=== PATIENT | female | born 2000 | race Hispanic/Latino ===

== ENCOUNTER 2020-09-10 17:54 | Emergency (ER) | payer OTHER, SELFPAY ==
[2020-09-10 18:02] VITALS: BP 110/57; PULSE 89; RESP 18; TEMP 36.5; O2SAT 100
--- NOTE | 2020-09-10 18:23 | ED_ITS ---
HPI - Allergic Reaction General Chief complaint: Allergic Reaction Stated complaint: Allergic reaction Time Seen by Provider: 09/10/20 17:58 Source: patient and EMS Mode of arrival: EMS Limitations: no limitations History of Present Illness HPI narrative: 19-year-old nonsmoker presents by EMS for evaluation of an allergic reaction. Patient had been eating some type of energy bar candy bar that had peanuts and soon thereafter developed an itchy, red rash and the sensation that her throat was closing. She called EMS and was very appropriately treated and brought here. She was given Benadryl as well as an injection of epinephrine and had a near complete resolution of her symptoms prior to her arrival. She denies any longstanding allergic history. She denies any facial, tongue, lip or throat swelling. She denies chest pain or shortness of breath. She denies nausea, vomiting or diarrhea. She denies any rash. MD complaint: allergic reaction Onset (ago): hour(s) Exposure: food Treatment prior to arrival: benadryl and epinephrine Previous Allergic Reaction History: none Related Data Previous Rx's Medication Instructions Recorded epinephrine [EpiPen 2-Cj] 0.3 mg IM Q5-15M PRN #2 each 09/10/20 prednisone 20 mg PO DAILY #5 tab 09/10/20 Allergies Allergy/AdvReac Type Severity Reaction Status Date / Time nut - unspecified Allergy Severe Anaphylaxis Verified 09/10/20 19:13 Review of Systems Constitutional Constitutional: Denies chills, Denies fatigue, Denies fever(s), Denies frequent falls, Denies lethargy and Denies weakness Eyes Eyes: Denies change in vision, Denies eye discharge, Denies irritation and Denies loss of vision ENT Ears, Nose, Mouth, and Throat: Denies change in voice, Denies dizziness, Denies neck pain, Denies sore throat and Reports throat swelling Cardiovascular Cardiovascular: Denies chest pain, Denies irregular heart rhythm, Denies lightheadedness, Denies palpitations, Denies dyspnea, Denies dyspnea on exertion and Denies orthopnea Respiratory Respiratory: Denies cough, Denies dyspnea, Denies dyspnea on exertion and Denies wheezing Gastrointestinal Gastrointestinal: Denies abdominal pain, Denies change in bowel habits, Denies diarrhea, Denies nausea and Denies vomiting Musculoskeletal Musculoskeletal: Denies neck pain and Denies numbness Integumentary/Breasts Skin/Breast: Denies pruritus, Denies erythema, Reports rash and Denies wounds Neurologic Neurologic: Denies behavioral changes, Denies confusion, Denies dizziness, Denies frequent falls, Denies loss of vision, Denies numbness and Denies weakness Psychiatric Psychiatric: Denies anxiety, Denies behavioral changes, Denies confusion, Denies depression, Denies homicidal ideation and Denies suicidal ideation Endocrine Endocrine: Denies fatigue, Denies flushing and Denies palpitations Hematologic/Lymphatic Hematologic/Lymphatic: Denies easy bruising Allergic/Immunologic Allergic/Immunologic: Denies urticaria, Reports throat swelling and Denies wheezing Patient History Social History Smoking Status: Never smoker Smoking Status: Never smoker Exam Narrative Exam Narrative: GENERAL: [19] year old patient appears stated age. Well- nourished, well-developed patient, in mild distress. HEAD: Atraumatic. Normocephalic. EYES: Pupils equal round and reactive. Extraocular motions intact. No scleral icterus. No injection or drainage. ENT: Nose without bleeding, purulent drainage. Throat without erythema, tonsillar hypertrophy or exudate. Airway patent. NECK: Trachea midline. Non tender CARDIOVASCULAR: Regular rate and rhythm without murmurs, gallops, or rubs. RESPIRATORY: Clear to auscultation. Breath sounds equal bilaterally. No wheezes, rales, or rhonchi. GASTROINTESTINAL: Abdomen soft, non-tender, nondistended. EXTREMITIES: No edema or joint tenderness. BACK: Nontender without deformity or crepitance. No flank tenderness. NEURO: AOx3. SKIN: No rash or erythema of visible areas Initial Vital Signs Initial Vital Signs: Vital Signs Temperature 97.7 F 09/10/20 18:02 Pulse Rate 89 09/10/20 18:02 Respiratory Rate 18 09/10/20 18:02 Blood Pressure 110/57 L 09/10/20 18:02 Pulse Oximetry 100 09/10/20 18:02 Course Orders Ordered: Discontinued Medications Dexamethasone (Dexamethasone 10 Mg/Ml Vial) 10 mg IV NOW ONE Stop: 09/10/20 18:27 Famotidine (Famotidine 20 Mg Tablet) 20 mg PO NOW ONE Stop: 09/10/20 19:14 Last Admin: 09/10/20 19:27 Dose: 20 mg Documented by: HAYLEY Famotidine (Pepcid) 20 mg in 50 mls @ 200 mls/hr IV NOW ONE Stop: 09/10/20 18:41 Prednisone (Prednisone 20 Mg Tablet) 60 mg PO NOW ONE Stop: 09/10/20 19:13 Last Admin: 09/10/20 19:27 Dose: 60 mg Documented by: HAYLEY Vital Signs Vital signs: Vital Signs - 8 hr 09/10/20 19:35 Pulse Rate 90 Respiratory Rate 15 Blood Pressure 102/65 Pulse Oximetry 100 MDM - Allergic Reaction Lab Data Labs: Point of Care Testing Test Results Negative Urine Dip Bedside Urine Glucose 100 mg/dl Bedside Urine Bilirubin - Negative Bedside Urine Ketone - Negative Urine Specific [place] 1.015 Bedside Urine Occult Blood - Negative Bedside Urine pH 6.5 Bedside Urine Protein - Negative Bedside Urine Urobilinogen - Negative Bedside Urine Nitrite - Negative Bedside Urine Leukocytes - Negative Esterase MDM Narrative Medical decision making narrative: Patient doing quite well after above-stated therapies. She is observed for an appropriate time frame and has no evolution of symptoms. Extensive return precautions given and questions answered to her apparent satisfaction. Discharge Plan Departure Patient Disposition: Home Clinical Impression: Allergic reaction Qualifiers: Encounter type: initial encounter Qualified Code(s): T78.40XA - Allergy, unspecified, initial encounter Instructions: DI for Anaphylaxis Activity Restrictions/Additional Instructions: *You have been diagnosed with [allergic reaction due to food] *What to do: *Take medications as directed: Also take over the counter antihistamines to help keep your reaction at a minimum. These include H1 nellie (Benadryl) and H2 nellie (Pepcid) *Follow up with your primary care provider in 2-3 days, call for an appointment. Let them know you were seen in the Emergency Department and that we ask that you be seen in follow up *Return to ER if you should have any new, worsening or concerning symptoms, such as [trouble swallowing, trouble breathing, swelling of tongue, lips or throat, other bothersome symptoms] Prescriptions: New prednisone 20 mg tablet 20 mg PO DAILY Qty: 5 RF: 0 epinephrine [EpiPen 2-Cj] 0.3 mg/0.3 mL auto-injector 0.3 mg IM Q5-15M PRN (Reason: anaphylaxis) Qty: 2 RF: 0
[2020-09-10] MEDS: FAMOTIDINE 20 MG TABLET PO (19:27)
[2020-09-10] MEDS: predniSONE 20 MG TABLET 60 MG PO (19:27)
[2020-09-10 19:35] VITALS: BP 102/65; PULSE 90; RESP 15; O2SAT 100
== END 2020-09-10 19:35 | disposition home or self-care (01) ==
PROVIDERS: Emergency Provider Emergency Medicine
DX: T78.40XA Allergy, unspecified, initial encounter (principal); R21 Rash and other nonspecific skin eruption; L29.9 Pruritus, unspecified
CPT/HCPCS: 81003; 81025; 99282; 99283; A9270

== ENCOUNTER 2021-02-07 17:00 | Emergency (ER) | payer OTHER, SELFPAY ==
[2021-02-07 17:18] VITALS: BP 98/62; PULSE 63; RESP 22; TEMP 36.4; O2SAT 100
[2021-02-07 17:40] LABS: Add Manual Diff / Slide Review NO; Basophils Absolute Auto 100 /uL (0-100); Basophils Percent Auto 0.6 % (0-2); Eosinophils Absolute Auto 100 /uL (0-450); Eosinophils Percent Auto 0.5 % (2-4); Hematocrit 41.1 % (36-46); Hemoglobin 13.6 g/dL (12.0-16.0); Lymphocytes Absolute Auto 2800 /uL (1100-4500); Lymphocytes Percent Auto 27.6 % (25-40); Mean Corpuscular HGB Conc 33.1 % (30-36); Mean Corpuscular Hemoglobin 30.8 PG (26-34); Mean Corpuscular Volume 93.1 fL (80-100); Monocytes Absolute Auto 800 /uL (0-900); Neutrophils Absolute Auto 6300 /uL (1500-7000); Neutrophils Percent Auto 63.3 % (50-75); Platelet Count 377 X10^3/uL (150-400); Red Blood Cell Count 4.41 X10^6/uL (4.0-5.2); Red Cell Distribution Width 13.4 % (11.6-14.8)
[2021-02-07 17:49] LABS: Alanine Aminotransferase 12 IU/L (<35); Albumin 4.5 g/dL (3.5-5.0); Albumin Globulin Ratio 1.4 (1.0-2.8); Alkaline Phosphatase 90 U/L (38-126); Aspartate Aminotransferase 21 IU/L (14-36); BUN Creatinine Ratio 25.7 (6-22); Bilirubin Total 0.3 mg/dL (0.2-1.3); Blood Urea Nitrogen 18 mg/dL (7-17); Calcium 9.4 mg/dL (8.4-10.2); Carbon Dioxide 29 mmol/L (22-32); Chloride 99 mmol/L (98-107); Estimated Glomerular Filt Rate > 60.0 mL/min (>60); Globulin 3.2 g/dL (1.7-4.1); Glucose 90 mg/dL (70-100); HEMOLYSIS < 15 (0-50); Lipase 57 U/L (23-300); Potassium 3.9 mmol/L (3.4-5.1); Sodium 137 mmol/L (137-145); Total Protein 7.7 g/dL (6.3-8.2)
== END 2021-02-07 19:41 | disposition left against medical advice (07) ==
PROVIDERS: Emergency Medicine; Emergency Provider Emergency Medicine
DX: R10.32 Left lower quadrant pain (principal); R19.7 Diarrhea, unspecified
CPT/HCPCS: 36415; 80053; 83690; 85025; 99281

== ENCOUNTER 2021-05-16 19:37 | Emergency (ER) | payer OTHER, SELFPAY ==
--- NOTE | 2021-05-16 19:42 | DI.US.S_ITS ---
PROCEDURE: US ABDOMEN LIMITED INDICATIONS: ruq TECHNIQUE: Real-time scanning was performed of the abdominal and retroperitoneal organs, with image documentation. COMPARISON: None. FINDINGS: Liver: Liver is normal in size and homogeneous in echotexture. Gallbladder: Gallbladder demonstrates no stones. Wall thickness is within normal limits measuring 1.5 cm. Biliary ducts: Intrahepatic bile ducts are non-dilated. Common hepatic duct caliber measures 1.9 mm IMPRESSION: Unremarkable exam. Dictated by: Shirley Harrison M.D. on 05/16/2021 at 20:44 Approved by: Shirley Harrison M.D. on 05/16/2021 at 20:45
[2021-05-16 19:44] VITALS: BP 118/57; PULSE 78; RESP 21; TEMP 36.9; O2SAT 98
--- NOTE | 2021-05-16 19:44 | ED.ABDPAIN ---
HPI - Abdominal Pain General Chief Complaint: Abdominal Pain Stated Complaint: ABD Pain Time Seen by Provider: 05/16/21 19:41 History of Present Illness HPI narrative: Patient is a 20-year-old female who presents with right upper quadrant pain which started about 1 hour ago. It came on suddenly sharp and stabbing right upper quadrant radiating to her back. She felt nauseous but no vomiting. No fever. There is a chance that she may be . She ate at about 2:00 a.m.. She does have a history of gastritis but this does not feel the same. No fever or chills. No chest pain or palpitations Related Data Previous Rx's Medication Instructions Recorded epinephrine 0.3 mg/0.3 mL 0.3 mg IM Q5-15M PRN #2 each 09/10/20 injection, auto-injector (EpiPen 2-Cj) Allergies Allergy/AdvReac Type Severity Reaction Status Date / Time nut - unspecified Allergy Severe Anaphylaxis Verified 05/16/21 19:46 Review of Systems Review of Systems Narrative: GENERAL: Denies chills, fatigue, malaise, fever, sweats, travel HEENT: Denies sinus pain, ear pain, sore throat, difficulty swallowing, neck pain RESPIRATORY: Denies dyspnea, cough, wheezing, hemoptysis, sputum. CARDIOVASCULAR: Denies chest pain, palpitations, orthopnea, edema GASTROINTESTINAL: See HPI : Denies dysuria, frequency, incontinence, hematuria, urinary retention, flank pain. MUSCULOSKELETAL: Denies weakness, joint pain, or bony pain SKIN: No rash, no erythema, no pruritus NEUROLOGIC: Denies weakness, dizziness, headache, numbness, change in speech, confusion PSYCHIATRIC: No concerning psychosocial issues. 12 point review of systems is negative except for those stated above and HPI Patient History Social History Smoking Status: Never smoker Smoking Status: Never smoker Exam Initial Vital Signs Initial Vital Signs: Vital Signs Temperature 98.5 F 05/16/21 19:44 Pulse Rate 78 05/16/21 19:44 Respiratory Rate 21 05/16/21 19:44 Blood Pressure 118/57 L 05/16/21 19:44 Pulse Oximetry 98 05/16/21 19:44 GENERAL: Alert well-appearing 20-year-old female HEENT: Head atraumatic,EOMI, pupils reactive, face symmetric, moist mucous membranes CARDIOVASCULAR: Regular rate and rhythm without murmurs, rubs or gallops. RESPIRATORY: Breath sounds equal bilaterally, no wheezes rales or rhonchi. ABDOMEN: Soft, tender right upper quadrant positive Dimas sign no guarding or rebound : No CVA tenderness EXTREMITIES: Normal range of motion, no clubbing or edema. Neurovascularly intact NEUROLOGICAL: Alert and oriented x4.Normal gait and speech. SKIN: Warm, dry, no laceration, no petechiae, no rashes or lesions. Course Orders Ordered: ED Orders 05/16/21 19:42 US abdomen limited Stat 05/16/21 19:45 Complete Blood Count AUTO DIFF Stat Comprehensive Metabolic Panel Stat Lipase Stat 05/16/21 20:54 CT abdomen pelvis w con Stat Discontinued Medications Sodium Chloride (Normal Saline 0.9%) 1,000 mls @ 1,000 mls/hr IV BOLUS ONE Stop: 05/16/21 20:46 Last Infusion: 05/16/21 22:01 Dose: 0 mls/hr Documented by: Admin: 05/16/21 19:50 Dose: 1,000 mls/hr Documented by: JOEY Ketorolac Tromethamine (Ketorolac 30 Mg/Ml Vial) 30 mg IV NOW ONE Stop: 05/16/21 19:43 Last Admin: 05/16/21 19:50 Dose: 30 mg Documented by: JOEY Ondansetron HCl (Ondansetron 4 Mg/2 Ml Inj) 4 mg IV NOW ONE Stop: 05/16/21 19:43 Last Admin: 05/16/21 19:50 Dose: 4 mg Documented by: JOEY Vital Signs Vital signs: Vital Signs - 8 hr 05/16/21 19:44 05/16/21 21:53 Temperature 98.5 F Pulse Rate 78 65 Respiratory Rate 21 16 Blood Pressure 118/57 L 117/67 Pulse Oximetry 98 97 MDM - Abdominal Pain Lab Data Result diagrams: 05/16/21 19:45 05/16/21 19:45 Labs: Lab Results 05/16/21 05/16/21 Range/Units 19:45 19:45 WBC 7.0 (4.5-11.0) X10^3/uL RBC 4.51 (4.0-5.2) X10^6/uL Hgb 14.5 (12.0-16.0) g/dL Hct 42.3 (36-46) % MCV 93.8 (80-100) fL MCH 32.1 (26-34) PG MCHC 34.3 (30-36) % RDW 12.5 (11.6-14.8) % Plt Count 355 (150-400) X10^3/uL Neut % (Auto) 48.8 L (50-75) % Lymph % (Auto) 39.6 (25-40) % [place] % (Auto) 9.1 (3-14) % Eos % (Auto) 1.6 L (2-4) % Baso % (Auto) 0.9 (0-2) % Neut # (Auto) 3400 (5792-1057) /uL Lymph # (Auto) 2800 (6356-4552) /uL [place] # (Auto) 600 (0-900) /uL Eos # (Auto) 100 (0-450) /uL Baso # (Auto) 100 (0-100) /uL Sodium 140 (137-145) mmol/L Potassium 3.9 (3.4-5.1) mmol/L Chloride 106 (98-107) mmol/L Carbon Dioxide 28 (22-32) mmol/L BUN 10 (7-17) mg/dL Creatinine 0.53 (0.52-1.04) mg/dL Estimated GFR > 60.0 (>60) mL/min BUN/Creatinine Ratio 18.9 (6-22) Glucose 94 (70-100) mg/dL Calcium 9.4 (8.4-10.2) mg/dL Total Bilirubin 0.3 (0.2-1.3) mg/dL AST 22 (14-36) IU/L ALT 13 (<35) IU/L Alkaline Phosphatase 87 (38-126) U/L Total Protein 7.8 (6.3-8.2) g/dL Albumin 4.6 (3.5-5.0) g/dL Globulin 3.2 (1.7-4.1) g/dL Albumin/Globulin Ratio 1.4 (1.0-2.8) Lipase 73 (23-300) U/L Point of care testing: Point of Care Testing Test Results Negative Urine Dip Bedside Urine Glucose Negative Bedside Urine Bilirubin - Negative Bedside Urine Ketone - Negative Urine Specific [place] 1.015 Bedside Urine Occult Blood - Negative Bedside Urine pH 7.5 Bedside Urine Protein - Negative Bedside Urine Urobilinogen - Negative Bedside Urine Nitrite - Negative Bedside Urine Leukocytes - Negative Esterase Imaging Data US - abdomen: Radiologist's Impression: PROCEDURE:? US ABDOMEN LIMITED ? INDICATIONS:? ruq ? TECHNIQUE:? Real-time scanning was performed of the abdominal and retroperitoneal organs, with image documentation.? ? COMPARISON:? None. ? FINDINGS:? ? Liver:? Liver is normal in size and homogeneous in echotexture.? ? Gallbladder:? Gallbladder demonstrates no stones.? Wall thickness is within normal limits measuring 1.5 cm.? ? Biliary ducts:? Intrahepatic bile ducts are non-dilated.? Common hepatic duct caliber measures 1.9 mm ? IMPRESSION:? Unremarkable exam. ? Dictated by: Shirley Harrison M.D. on 05/16/2021 at 20:44 ?? CT scan - abdomen/pelvis: Radiologist's Impression: PROCEDURE:? CT ABDOMEN PELVIS W CON ? INDICATIONS:? right lower quadrant pain and flank pain ? TECHNIQUE:? After the administration of IV contrast, axial sections were acquired from the lung bases to the pubic symphysis.? Coronal and sagittal reformats were performed.? For radiation dose reduction, the following was used:? automated exposure control, adjustment of mA and/or kV according to patient size. ? COMPARISON:? [facility], , US ABDOMEN LIMITED, 05/16/2021, 20:08. ? FINDINGS:? Image quality:? Excellent.? ? Lung bases:? Unremarkable.? ? Heart:? No significant findings. ? ? ABDOMEN: Liver:? Liver is of the upper limits of normal in size measuring 15.6 cm with overall appearance of mild steatosis. Gallbladder:? Gallbladder is contracted but grossly unremarkable.? ? Biliary ducts:? Unremarkable.? ? Pancreas:? Unremarkable.? ? Spleen:? Unremarkable.? ? Adrenal Glands:? Unremarkable.? ? Kidneys and Ureters:? There is no renal or ureteral obstruction.? No calculi.? There is incidental note a retroaortic left renal vein. ? Stomach and Bowel:? Stomach, small bowel loops, and colon are unremarkable.? Appendix is normal.? Scattered colonic diverticula are present without associated inflammatory change. Peritoneum:? No abnormal intraperitoneal fluid.? No free air.? ? Ventral Wall: ? No hernia.? Abdominal Nodes:? No retroperitoneal or mesenteric adenopathy by size criteria.? Vessels:? Aorta and inferior vena cava are normal in size.? ? PELVIS: Pelvic Organs:? The left adnexa/fallopian tube appears mildly prominent. Bladder:? Unremarkable.? ? Pelvic Nodes: No enlarged lymph nodes.? Miscellaneous: No inguinal hernias are seen. ? ? ? Bones:? Unremarkable.? IMPRESSION:? ? 1. Mild prominence the left fallopian tube/adnexa, possibly projectional.? However, appearances can be deceiving.? If concern persists within this region and clinical symptoms appropriate with possible hydrosalpinx, pelvic ultrasound is recommended.? 2. Diverticulosis.? ? Dictated by: Shirley Harrison M.D. on 05/16/2021 at 21:20 ? ? MDM Narrative Medical decision making narrative: Patient is having right upper quadrant pain and epigastric pain most consistent with gallbladder disease. However blood work and ultrasound are negative. Patient is re-examined having some minimal right lower quadrant pain very mild bilateral flank pain. CT shows an incidental finding of prominence and left fallopian tube an adnexal diarrhea. She has no left lower quadrant pain her urine is negative. She is expected to have her. In 3 days. It does not sound like they are trying to conceive. She was having some mild cramping earlier. Recommend outpatient follow-up. This is suspected to be incidental to not cause her discomfort. Discharge Plan Departure Patient Disposition: Home Clinical Impression: Abdominal pain Qualifiers: Abdominal location: right upper quadrant Qualified Code(s): R10.11 - Right upper quadrant pain Instructions: DI for Abdominal Pain-Adult Activity Restrictions/Additional Instructions: *You have been diagnosed with right upper quadrant pain *What to do: Pain today may or may not be related to her gallbladder. Ultrasound blood work and CT scan are overall reassuring. Her urine test was negative. However your CT scan did show some possible left fallopian tube abnormality. This is unlikely to be causing any your discomfort today however please follow-up with her primary care provider or your senior accounts payable specialist about this. If you do not get your period in 1 week please retake test *Continue to take medications as directed Motrin 600 mg every 6 hours if needed for [id number] pain *Follow up with your primary care provider in 2-3 days *Return to ER if you should have increasing left lower quadrant pain, increasing abdominal pain, nausea, vomiting any new, worsening or concerning symptoms Prescriptions: No Action epinephrine [EpiPen 2-Cj] 0.3 mg/0.3 mL auto-injector 0.3 mg IM Q5-15M PRN (Reason: anaphylaxis) Qty: 2 RF: 0 Referrals: [facility] [Provider Group]
[2021-05-16 19:49] LABS: Add Manual Diff / Slide Review NO; Basophils Absolute Auto 100 /uL (0-100); Basophils Percent Auto 0.9 % (0-2); Eosinophils Absolute Auto 100 /uL (0-450); Eosinophils Percent Auto 1.6 % (2-4); Hematocrit 42.3 % (36-46); Hemoglobin 14.5 g/dL (12.0-16.0); Lymphocytes Absolute Auto 2800 /uL (1100-4500); Lymphocytes Percent Auto 39.6 % (25-40); Mean Corpuscular HGB Conc 34.3 % (30-36); Mean Corpuscular Hemoglobin 32.1 PG (26-34); Mean Corpuscular Volume 93.8 fL (80-100); Monocytes Absolute Auto 600 /uL (0-900); Monocytes Percent Auto 9.1 % (3-14); Neutrophils Absolute Auto 3400 /uL (1500-7000); Neutrophils Percent Auto 48.8 % (50-75); Platelet Count 355 X10^3/uL (150-400); Red Blood Cell Count 4.51 X10^6/uL (4.0-5.2); Red Cell Distribution Width 12.5 % (11.6-14.8)
[2021-05-16] MEDS: KETOROLAC 30 MG/ML VIAL IV (19:50)
[2021-05-16] MEDS: ONDANSETRON 4 MG/2 ML INJ IV (19:50)
[2021-05-16] MEDS: SODIUM CHLORIDE 0.9% 1,000 ML 1000 ML IV (19:50)
[2021-05-16 20:05] LABS: Alanine Aminotransferase 13 IU/L (<35); Albumin 4.6 g/dL (3.5-5.0); Albumin Globulin Ratio 1.4 (1.0-2.8); Alkaline Phosphatase 87 U/L (38-126); Aspartate Aminotransferase 22 IU/L (14-36); BUN Creatinine Ratio 18.9 (6-22); Bilirubin Total 0.3 mg/dL (0.2-1.3); Blood Urea Nitrogen 10 mg/dL (7-17); Calcium 9.4 mg/dL (8.4-10.2); Carbon Dioxide 28 mmol/L (22-32); Chloride 106 mmol/L (98-107); Estimated Glomerular Filt Rate > 60.0 mL/min (>60); Globulin 3.2 g/dL (1.7-4.1); Glucose 94 mg/dL (70-100); HEMOLYSIS 21 (0-50); Lipase 73 U/L (23-300); Potassium 3.9 mmol/L (3.4-5.1); Sodium 140 mmol/L (137-145); Total Protein 7.8 g/dL (6.3-8.2)
--- NOTE | 2021-05-16 20:54 | DI.CT.S_ITS ---
PROCEDURE: CT ABDOMEN PELVIS W CON INDICATIONS: right lower quadrant pain and flank pain TECHNIQUE: After the administration of IV contrast, axial sections were acquired from the lung bases to the pubic symphysis. Coronal and sagittal reformats were performed. For radiation dose reduction, the following was used: automated exposure control, adjustment of mA and/or kV according to patient size. COMPARISON: [facility], , US ABDOMEN LIMITED, 05/16/2021, 20:08. FINDINGS: Image quality: Excellent. Lung bases: Unremarkable. Heart: No significant findings. ABDOMEN: Liver: Liver is of the upper limits of normal in size measuring 15.6 cm with overall appearance of mild steatosis. Gallbladder: Gallbladder is contracted but grossly unremarkable. Biliary ducts: Unremarkable. Pancreas: Unremarkable. Spleen: Unremarkable. Adrenal Glands: Unremarkable. Kidneys and Ureters: There is no renal or ureteral obstruction. No calculi. There is incidental note a retroaortic left renal vein. Stomach and Bowel: Stomach, small bowel loops, and colon are unremarkable. Appendix is normal. Scattered colonic diverticula are present without associated inflammatory change. Peritoneum: No abnormal intraperitoneal fluid. No free air. Ventral Wall: No hernia. Abdominal Nodes: No retroperitoneal or mesenteric adenopathy by size criteria. Vessels: Aorta and inferior vena cava are normal in size. PELVIS: Pelvic Organs: The left adnexa/fallopian tube appears mildly prominent. Bladder: Unremarkable. Pelvic Nodes: No enlarged lymph nodes. Miscellaneous: No inguinal hernias are seen. Bones: Unremarkable. IMPRESSION: 1. Mild prominence the left fallopian tube/adnexa, possibly projectional. However, appearances can be deceiving. If concern persists within this region and clinical symptoms appropriate with possible hydrosalpinx, pelvic ultrasound is recommended. 2. Diverticulosis. Dictated by: Shirley Harrison M.D. on 05/16/2021 at 21:20 Approved by: Shirley Harrison M.D. on 05/16/2021 at 21:25
[2021-05-16 21:53] VITALS: BP 117/67; PULSE 65; RESP 16; O2SAT 97
== END 2021-05-16 21:55 | disposition home or self-care (01) ==
PROVIDERS: Emergency Provider Emergency Medicine
DX: R10.11 Right upper quadrant pain (principal)
CPT/HCPCS: 36415; 74177; 76705; 80053; 81003; 81025; 83690; 85025; 96361; 96374; 96375; 99284; J1885; J2405; Q9967

== ENCOUNTER → 2022-05-08 14:01 | Outpatient (CLI) | payer OTHER, SELFPAY ==
--- NOTE | 2022-05-08 14:02 | DI.US.S_ITS ---
PROCEDURE: US OB <= 14 WEEKS FETUS INDICATIONS: DATING OUTSIDE/PRIOR DATING DATA: Last menstrual period (LMP): March 14, 2022. LMP-based estimated date of delivery (URIAH): December 19, 2022. First dating scan (date and location): 05/08/22, [facility]. TECHNIQUE: Real-time scanning was performed of the fetus and maternal pelvic organs, with image documentation. Endovaginal scanning was also performed to better visualize the fetus and maternal ovaries. COMPARISON: None. FINDINGS: Embryo: No pole yet visualized. A yolk sac is visualized. The gestational sac measures 1.1 cm for a gestational age of 5 weeks, 6 days. Heart rate: Not visualized Maternal organs: The right ovary is not visualized. There is a left corpus luteal cyst. IMPRESSION: Gestational sac and yolk sac visualized. No pole visualized. Gestational age is 5 weeks, 6 days by gestational sac diameter. Findings suggest early dates. However, continued clinical and sonographic surveillance is recommended. We strive to produce accurate, complete, and clear reports of imaging services. To assist us in improving patient care, this report was composed using standard report templates and voice recognition software. Therefore, it may contain abnormal punctuation, insertions and/or omissions. Occasional wrong-word or sound-alike substitutions may occur. Though we review the report and make efforts to correct it, we do recommend that the report be read carefully in proper context to recognize any text inaccuracies. Dictated by: Yolette Chinchilla M.D. on 05/08/2022 at 15:08 Approved by: Yolette Chinchilla M.D. on 05/08/2022 at 15:10
[2022-05-08 16:03] LABS: Add Manual Diff / Slide Review NO; Basophils Absolute Auto 0 /uL (0-100); Basophils Percent Auto 0.3 % (0-2); Eosinophils Absolute Auto 0 /uL (0-450); Eosinophils Percent Auto 0.2 % (2-4); Hemoglobin 13.1 g/dL (12.0-16.0); Lymphocytes Absolute Auto 2100 /uL (1100-4500); Lymphocytes Percent Auto 22.5 % (25-40); Mean Corpuscular HGB Conc 35.5 % (30-36); Mean Corpuscular Hemoglobin 32.7 PG (26-34); Mean Corpuscular Volume 92.2 fL (80-100); Monocytes Absolute Auto 700 /uL (0-900); Monocytes Percent Auto 6.9 % (3-14); Neutrophils Absolute Auto 6600 /uL (1500-7000); Neutrophils Percent Auto 70.1 % (50-75); Platelet Count 367 X10^3/uL (150-400); Red Blood Cell Count 4.01 X10^6/uL (4.0-5.2); Red Cell Distribution Width 12.1 % (11.6-14.8); White Blood Cell Count 9.4 X10^3/uL (4.5-11.0)
[2022-05-08 17:22] LABS: Appearance Urine UA CLOUDY; Bilirubin Urine UA NEGATIVE (NEGATIVE); Color Urine UA YELLOW; Glucose Urine UA NEGATIVE (Negative); Ketones Urine UA NEGATIVE (NEGATIVE); Leukocyte Esterase Urine UA NEGATIVE (NEGATIVE); Nitrite Urine UA NEGATIVE (Negative); Occult Blood Urine UA NEGATIVE (Negative); Protein Urine UA NEGATIVE (Negative); Urobilinogen Urine UA 0.2 E.U./dL (0.2)
[2022-05-08 17:33] LABS: HIV 1 & 2 Ab/Ag 4th Gen Combo NEGATIVE (NEGATIVE); Hep C Virus Ab w/Reflex Quant NEGATIVE s/c (NEGATIVE); Hepatitis B Surface Antigen NEGATIVE s/c (NEGATIVE); Rubella Antibody IgG 61.4 IU/mL (>15)
[2022-05-09 07:22] LABS: Varicella IgG Antibody <135 index (Immune >165)
[2022-05-09 08:22] LABS: RPR Screen Non Reactive (Non Reactive)
== END ==
PROVIDERS: Referring Provider Obstetrics & Gynecology; Visit Provider Obstetrics & Gynecology
DX: Z34.01 Encounter for supervision of normal first pregnancy, first trimester (principal); Z3A.01 Less than 8 weeks gestation of pregnancy
CPT/HCPCS: 36415; 76801; 76817; 80055; 81003; 86787; 86803; 86850; 86900; 86901; 87389

== ENCOUNTER → 2022-05-24 15:37 | Outpatient (CLI) | payer OTHER, SELFPAY ==
--- NOTE | 2022-05-24 15:39 | DI.US.S_ITS ---
PROCEDURE: US OB <= 14 WEEKS FETUS INDICATIONS: FOLLOW UP PRIOR ULTRASOUND VIABILITY OUTSIDE/PRIOR DATING DATA: Last menstrual period (LMP): 03/14/2022. LMP-based estimated date of delivery (URIAH): 12/17/2022. First dating scan (date and location): 05/24/2022 Estimated date of delivery (URIAH) from first dating scan: 01/02/2023 TECHNIQUE: Real-time scanning was performed of the fetus and maternal pelvic organs, with image documentation. Endovaginal scanning was also performed to better visualize the fetus and maternal ovaries. COMPARISON: [facility], , OB <= 14 WEEKS FETUS, 05/08/2022, 14:10. FINDINGS: Single intrauterine noted with a gestational sac containing pole and yolk sac. [place]-rump length measures 1.6 cm corresponding with a 8 week 1 day gestation. heart rate 163 beats per minute. No subchorionic bleed IMPRESSION: Single live intrauterine corresponds with an 8 week 1 day gestation Approved by: Zane Orellana M.D. on 05/24/2022 at 16:12
== END ==
PROVIDERS: Referring Provider Obstetrics & Gynecology; Visit Provider Obstetrics & Gynecology
DX: Z34.01 Encounter for supervision of normal first pregnancy, first trimester (principal); Z3A.08 8 weeks gestation of pregnancy
CPT/HCPCS: 76801; 76817

== ENCOUNTER → 2022-06-09 15:25 | Outpatient (CLI) | payer OTHER, SELFPAY ==
[2022-06-09 21:02] LABS: Urine N gonorrhoeae NOT DETECTED
[2022-06-09 21:04] LABS: Urine Chlamydia DETECTED
== END ==
PROVIDERS: Visit Provider Specialist
DX: Z34.01 Encounter for supervision of normal first pregnancy, first trimester (principal); Z3A.10 10 weeks gestation of pregnancy
CPT/HCPCS: 87491; 87591

== ENCOUNTER → 2022-06-13 12:58 | Outpatient (CLI) | payer OTHER, SELFPAY ==
[2022-06-13 13:29] LABS: Specimen Label NATERA
[2022-06-13 15:40] LABS: Urine N gonorrhoeae NOT DETECTED
[2022-06-13 16:07] LABS: Urine Chlamydia DETECTED
== END ==
PROVIDERS: Referring Provider Obstetrics & Gynecology; Visit Provider Obstetrics & Gynecology
DX: O98.819 Other maternal infectious and parasitic diseases complicating pregnancy, unspecified trimester (principal); A74.9 Chlamydial infection, unspecified
CPT/HCPCS: 87491; 87591

== ENCOUNTER → 2022-07-03 11:03 | Outpatient (CLI) | payer OTHER, SELFPAY ==
[2022-07-03 15:14] LABS: Urine N gonorrhoeae NOT DETECTED
[2022-07-03 15:26] LABS: Urine Chlamydia NOT DETECTED
== END ==
PROVIDERS: Visit Provider Physician Assistant Medical
DX: Z34.01 Encounter for supervision of normal first pregnancy, first trimester (principal); Z3A.14 14 weeks gestation of pregnancy
CPT/HCPCS: 87491; 87591